=== PATIENT | female | born 1990 | race Two or more races ===

== ENCOUNTER → 2018-07-01 | Outpatient (CLI) | payer BC, OTHER ==
[2018-07-02 08:48] LABS: Urine WBC None Seen /hpf (0 - 5)
[2018-07-02 11:46] LABS: Basophils # (auto) 0 uL; Lymphocytes # (auto) 1.7 uL; Monocytes # (auto) 0.3 uL
[2018-07-02 11:51] LABS: Basophils % (auto) 0.7 % (0.0-2.0); Eosinophils # (auto) 0 uL; Eosinophils % (auto) 0.8 % (0.0-7.0); Hematocrit 35.5 % (36.0-46.0); Lymphocytes % (auto) 31.2 % (10.0-50.0); Mean Corpuscular Hemoglobin 21.3 pg (28.0-32.0); Mean Corpuscular Hgb Conc. 30.9 g/dL (32.0-36.0); Mean Corpuscular Volume 69.1 fL (80.0-100.0); Monocytes % (auto) 5.7 % (0.0-12.0); Neutrophils # (auto) 3.3 uL; Neutrophils % (auto) 61.6 % (37.0-80.0); Platelet Count (auto) 518 10^3/uL (140-450); Red Blood Cells 5.14 10^6/uL (4.0-5.20); Red Cell Distribution Width 19.5 % (11.8-14.3); White Blood Cell 5.3 10^3/uL (4.4-10.8)
[2018-07-02 12:07] LABS: Potassium 4.1 mmol/L (3.5-5.1)
[2018-07-02 12:11] LABS: Urine Amorphous Crystal MANY /hpf (None Seen); Urine Bacteria NONE SEEN /hpf (None Seen); Urine Blood 3+ /uL (Negative); Urine Specific Gravity 1.025 (1.001-1.035)
[2018-07-02 12:16] LABS: BUN/Creatinine Ratio 13.4; Bilirubin, Total 0.2 mg/dL (0.2-1.0); Calcium 9.2 mg/dL (8.5-10.1); Magnesium 2.4 mg/dL (1.6-2.6); Phosphorus 2.4 mg/dL (2.5-4.90); Total Protein 9.6 g/dL (6.4-8.2); Uric Acid 4.2 mg/dL (2.6-6.0)
[2018-07-02 12:17] LABS: Free T3 2.24 pg/mL (2.3-4.2); T3 Total 0.84 ng/mL (0.60-1.81)
[2018-07-02 12:24] LABS: Beta HCG, Quantitative < 1 mlU/mL (1-3); Thyroid Stimulating Hormone 3.52 uIU/mL (0.358-3.74)
== END | disposition home or self-care (01) ==
LOC: LAB 15:42
PROVIDERS: ATTEND Internal Medicine Cardiovascular Disease
DX: Z32.00 Encounter for pregnancy test, result unknown (principal); F32.9 Major depressive disorder, single episode, unspecified; N93.9 Abnormal uterine and vaginal bleeding, unspecified; D64.9 Anemia, unspecified; D51.9 Vitamin B12 deficiency anemia, unspecified; E03.9 Hypothyroidism, unspecified; C51.9 Malignant neoplasm of vulva, unspecified; Z76.89 Persons encountering health services in other specified circumstances
CPT/HCPCS: 36415; 80053; 80061; 81001; 82306; 82607; 82962; 83036; 83735; 84100; 84443; 84480; 84481; 84550; 84702; 85025; 87086

== ENCOUNTER → 2018-07-29 | Outpatient (CLI) | payer BC | END | disposition home or self-care (01) | LOC: LAB 14:31 | PROVIDERS: ATTEND Internal Medicine Cardiovascular Disease | DX: E06.3 Autoimmune thyroiditis (principal); Z83.49 Family history of other endocrine, nutritional and metabolic diseases | CPT/HCPCS: 84436; 86376 ==

== ENCOUNTER → 2018-09-15 | Outpatient (CLI) | payer BC ==
[2018-09-15 16:10] LABS: Anion Gap 6 (5-15); Carbon Dioxide 26 mmol/L (21-32); Chloride 104 mmol/L (98-107); Potassium 3.9 mmol/L (3.5-5.1); Sodium 136 mmol/L (136-145)
[2018-09-15 16:16] LABS: Free T4 (Free Thyroxine) 0.97 ng/dL (0.89-1.76)
[2018-09-15 16:17] LABS: Free T3 2.87 pg/mL (2.3-4.2); T3 Total 0.87 ng/mL (0.60-1.81)
[2018-09-15 16:18] LABS: Alanine Aminotransferase 31 U/L (13-56); Albumin 4.2 g/dL (3.4-5.0); Alkaline Phosphatase 48 U/L (45-117); Aspartate Aminotransferase 18 U/L (15-37); BUN/Creatinine Ratio 15.1; Bilirubin, Total 0.3 mg/dL (0.2-1.0); Blood Urea Nitrogen 13 mg/dL (7-18); Calcium 9.6 mg/dL (8.5-10.1); Cholesterol 213 mg/dL (< 200); Folate (Folic Acid) 9.91 ng/mL (5.38-24); GFR African American > 60 mL/min; GFR Non-African American > 60 mL/min; Glucose 80 mg/dL (74-106); HDL Cholesterol 73 mg/dL (40-59); LDL Cholesterol 111 mg/dL (< 100); Phosphorus 3.4 mg/dL (2.5-4.90); Total Protein 9.6 g/dL (6.4-8.2); Triglycerides 151 mg/dL (< 150); Uric Acid 4.2 mg/dL (2.6-6.0)
[2018-09-15 16:25] LABS: Basophils # (auto) 0 uL; Eosinophils # (auto) 0 uL; Hemoglobin 11.7 g/dL (12.2-16.2); Lymphocytes # (auto) 1.6 uL; Monocytes # (auto) 0.3 uL; Neutrophils # (auto) 1.9 uL; Red Cell Distribution Width 19.6 % (11.8-14.3); White Blood Cell 3.9 10^3/uL (4.4-10.8)
[2018-09-15 16:28] LABS: Basophils % (auto) 0.6 % (0.0-2.0); Eosinophils % (auto) 0.7 % (0.0-7.0); Hematocrit 37.1 % (36.0-46.0); Lymphocytes % (auto) 40.5 % (10.0-50.0); Mean Corpuscular Hemoglobin 21.1 pg (28.0-32.0); Mean Corpuscular Hgb Conc. 31.6 g/dL (32.0-36.0); Mean Corpuscular Volume 66.6 fL (80.0-100.0); Monocytes % (auto) 8.7 % (0.0-12.0); Neutrophils % (auto) 49.5 % (37.0-80.0); Nucleated Red Blood Cells % 1.2 %; Platelet Count (auto) 382 10^3/uL (140-450); Red Blood Cells 5.57 10^6/uL (4.0-5.20)
== END | disposition home or self-care (01) ==
LOC: LAB 10:41
PROVIDERS: ATTEND Internal Medicine Cardiovascular Disease
DX: E03.9 Hypothyroidism, unspecified (principal); D52.9 Folate deficiency anemia, unspecified; N39.9 Disorder of urinary system, unspecified; D50.8 Other iron deficiency anemias; M10.9 Gout, unspecified; E55.9 Vitamin D deficiency, unspecified; R53.83 Other fatigue; R73.03 Prediabetes
CPT/HCPCS: 36415; 80053; 80061; 82306; 82607; 82746; 83036; 83540; 83550; 84100; 84439; 84443; 84480; 84481; 84550; 85025

== ENCOUNTER → 2019-03-11 | Outpatient (CLI) | payer BC ==
[2019-03-11 15:44] LABS: Basophils # (auto) 0 uL; Mean Corpuscular Hemoglobin 20.2 pg (28.0-32.0); Monocytes # (auto) 0.4 uL; Neutrophils # (auto) 2.6 uL; White Blood Cell 4.1 10^3/uL (4.4-10.8)
[2019-03-11 15:46] LABS: Basophils % (auto) 0.8 % (0.0-2.0); Eosinophils # (auto) 0 uL; Eosinophils % (auto) 0.9 % (0.0-7.0); Hemoglobin 10.5 g/dL (12.2-16.2); Lymphocytes # (auto) 1.1 uL; Lymphocytes % (auto) 26.4 % (10.0-50.0); Mean Corpuscular Hgb Conc. 30.9 g/dL (32.0-36.0); Mean Corpuscular Volume 65.3 fL (80.0-100.0); Monocytes % (auto) 8.6 % (0.0-12.0); Neutrophils % (auto) 63.3 % (37.0-80.0); Nucleated Red Blood Cells % 0.1 %; Platelet Count (auto) 290 10^3/uL (140-450); Red Blood Cells 5.21 10^6/uL (4.0-5.20); Red Cell Distribution Width 18.9 % (11.8-14.3)
[2019-03-11 15:54] LABS: Albumin 3.7 g/dL (3.4-5.0); Calcium 9.5 mg/dL (8.5-10.1); Potassium 4.3 mmol/L (3.5-5.1); Uric Acid 4.5 mg/dL (2.6-6.0)
[2019-03-11 16:02] LABS: Free T3 2.66 pg/mL (2.3-4.2); Free T4 (Free Thyroxine) 0.85 ng/dL (0.89-1.76); T3 Total 0.93 ng/mL (0.60-1.81)
[2019-03-11 16:04] LABS: Folate (Folic Acid) 7.61 ng/mL (5.38-24)
[2019-03-11 16:05] LABS: BUN/Creatinine Ratio 13.5
[2019-03-11 16:06] LABS: Bilirubin, Total 0.2 mg/dL (0.2-1.0); Total Protein 8.3 g/dL (6.4-8.2)
== END | disposition home or self-care (01) ==
LOC: LAB 11:06
PROVIDERS: ATTEND Internal Medicine Cardiovascular Disease
DX: Z00.00 Encounter for general adult medical examination without abnormal findings (principal); D50.8 Other iron deficiency anemias; E55.9 Vitamin D deficiency, unspecified; R76.8 Other specified abnormal immunological findings in serum; R73.03 Prediabetes; K90.9 Intestinal malabsorption, unspecified; M32.10 Systemic lupus erythematosus, organ or system involvement unspecified
CPT/HCPCS: 36415; 80053; 80061; 82607; 82746; 83036; 84439; 84443; 84480; 84481; 84550; 85025; 86225; 86235